=== PATIENT | female | born 1970 | race Caucasian/White ===

== ENCOUNTER 2017-12-24 21:04 | Emergency (ER) | payer BC ==
[2017-12-25] MEDS: ALBUTEROL 0.5% (NEB) 2.5 MG/0.5 ML AMP INH (00:31)
[2017-12-25] MEDS: IPRATROPIUM (NEB) 0.5 MG/2.5 ML AMP INH (00:31)
[2017-12-25] MEDS: METHYLPREDNISOLONE 125 MG INJ IM (00:31)
== END 2017-12-25 02:11 | disposition home or self-care (01) ==
LOC: FTE 21:04
DX: J40 Bronchitis, not specified as acute or chronic (principal)
CPT/HCPCS: 71045; 81025; 94644; 96372; 99284-25